=== PATIENT | male | born 1990 | race Caucasian/White ===

== ENCOUNTER 2021-11-12 19:30 | Emergency (ER) | payer OTHER ==
[2021-11-12 20:59] LABS: BASOPHIL 0.4 % (0-2); EOSINOPHIL 2.2 % (0-5); HCT 46.8 % (42.0-52.0); HGB 16.2 g/dl (13.2-18.0); MCH 30.2 pg (25.0-31.0); MCHC 34.6 g/dL (32.0-36.0); MCV 87.3 fL (78.0-100.0); MONOCYTE 5.8 % (0-12); MPV 9.9 fL (6.0-9.5); NEUTROPHIL 50.7 % (41-80); NRBC 0; PLT 334 K/uL (150-400); RBC 5.36 M/uL (4.70-6.00); RDW 12.5 % (11.5-14.0)
[2021-11-12 21:02] LABS: LYMPHOCYTE 40.5 % (15-48)
[2021-11-12 21:18] LABS: BUN/CREAT RATIO (CALC) 18.4 RATIO; CREATININE 0.98 mg/dL (0.67-1.17); POTASSIUM 3.6 mmol/L (3.5-5.1)
[2021-11-12] MEDS ORDERED: EPIPEN 2-P0.3 MG/0.3 IM ×2 (22:51→23:01)
[2021-11-12] MEDS ORDERED: ALL DAY ALLERGY10 MG PO ×2 (22:51→23:01)
== END 2021-11-12 23:00 | disposition home or self-care (01) ==
LOC: FER 19:30
PROVIDERS: Internal Medicine
DX: T63.461A Toxic effect of venom of wasps, accidental (unintentional), initial encounter (principal); I10 Essential (primary) hypertension; F17.210 Nicotine dependence, cigarettes, uncomplicated; Z28.310 Unvaccinated for COVID-19
CPT/HCPCS: 36415; 80048; 84484; 85025; 93005; 96372; J0171; J1200; J1885; J2060; J2930